=== PATIENT | female | born 1940 | race Native Hawaiian/Other Pacific Islander ===

== ENCOUNTER 2019-05-31 09:55 | Outpatient (CLI) | payer OTHER ==
[~2019-05-31 09:55] MED LIST: CLONIDINE0.1 MG PO; DEXL60CA4 PO; DIAZEPAM10 MG PO; GLYB5TAB65 PO; LOVASTATIN20 MG OR; PLAVIX75 MG PO; TOPROL XL200 MG PO
== END 2019-05-31 23:04 | disposition home or self-care (01) ==
LOC: RAD 09:55
DX: M85.88 Other specified disorders of bone density and structure, other site (principal)

== ENCOUNTER 2021-05-26 09:22 | Outpatient (CLI) | payer OTHER | END 2021-05-26 21:52 | disposition home or self-care (01) | LOC: MRI 09:22 | PROVIDERS: ATTEND Surgery | DX: E11.621 Type 2 diabetes mellitus with foot ulcer (principal) | CPT/HCPCS: 36415; 82565; 84520; A9576 ==

== ENCOUNTER 2021-10-12 00:01 | Emergency (ER) | payer OTHER ==
[~2021-10-12] VITALS: Ht 165.1 cm; Wt 63.5 kg
[2021-10-12 01:14] LABS: PLATELET COUNT 273 K/uL (152-353)
[2021-10-12 01:21] LABS: POTASSIUM 3.3 mmol/L (3.6-5.2)
[2021-10-12 01:42] LABS: PARTIAL THROMBOPLASTIN TIME 34.3 SECONDS (24.5-33.6)
[2021-10-12 02:25] VITALS: BP 142/82; TEMP 98
== END 2021-10-12 02:25 | disposition short-term general hospital (02) ==
LOC: ED 00:01
PROVIDERS: Hospitalist
PROC: 0T9B70Z Drainage of Bladder with Drainage Device, Via Natural or Artificial Opening (ICD-10-PCS; principal; 2021-10-12)
DX: I21.19 ST elevation (STEMI) myocardial infarction involving other coronary artery of inferior wall (principal); M25.552 Pain in left hip; Z11.52 Encounter for screening for COVID-19; W18.39XA Other fall on same level, initial encounter; Y92.89 Other specified places as the place of occurrence of the external cause
CPT/HCPCS: 36415; 51702; 80053; 82550; 83880; 84484; 85027; 85610; 85730; 87635; 93005; 96365; 96375; 96376; 99285; J0360; J1644; J2270; J2405; U0003